=== PATIENT | female | born 1995 | race Caucasian/White ===

== ENCOUNTER 2021-10-29 21:47 | Emergency (ER) | payer BC ==
[~2021-10-29] VITALS: Ht 170.2 cm; Wt 53.1 kg
[2021-10-29 21:51] VITALS: BP 142/76
--- NOTE | 2021-10-29 22:10 | NUR ---
PT TAKEN TO BED 8
--- NOTE | 2021-10-29 22:10 | NUR ---
Patient reported, her cat bit right hand ~ 2000 PM today. Last dose of Tdap shot in 2015. PMHx: DENIES
[2021-10-29] MEDS ORDERED: KETOROLAC 30 MG/ML VIAL IM ONE (22:15)
[2021-10-29] MEDS ORDERED: AMOXIL/CLAVULANATE 875/125 MG 1 TAB PO ONE (22:15)
--- NOTE | 2021-10-29 22:21 | NUR ---
XRAY AT BEDSIDE
[2021-10-30] MEDS ORDERED: BACITRACIN OINT 500 UNITS/GM PKT TP ONE (00:35)
[2021-10-30] MEDS ORDERED: AMOX1TAB8 PO (00:38)
[2021-10-30] MEDS ORDERED: BACI1PAC6 TP (00:38)
--- NOTE | 2021-10-30 01:15 | NUR ---
Patient discharged with v/s stable. Written and verbal after care instructions given and explained. Patient verbalized understanding. Ambulatory with steady gait. All questions addressed prior to discharge. Advised to follow up with PMD.
== END 2021-10-30 01:15 | disposition home or self-care (01) ==
LOC: MED 21:47
DX: S61.451A Open bite of right hand, initial encounter (principal); Z88.0 Allergy status to penicillin; Z79.899 Other long term (current) drug therapy; W55.01XA Bitten by cat, initial encounter; Y93.89 Activity, other specified; Y92.89 Other specified places as the place of occurrence of the external cause; Y99.8 Other external cause status
CPT/HCPCS: 73130; 96372; 99283; J1885; Q0092